=== PATIENT | male | born 1975 | race Caucasian/White ===

== ENCOUNTER 2017-06-24 18:28 | Emergency (ER) | payer MEDICAID ==
[2017-06-24] MEDS: LIDOCAINE/MYLANTA 40 ML BTL PO (21:03)
[2017-06-24] MEDS: FAMOTIDINE 20 MG TAB PO (21:03)
[2017-06-24 21:16] LABS: ADD MAN DIFF? NO
[2017-06-24 21:18] LABS: WHITE BLOOD COUNT 8.9 10^3/ul (4.8-10.8)
[2017-06-24 21:18] LABS: BASOPHILS % 0.3 % (0.0-2.0); EOSINOPHILS % 0.3 % (0.0-7.0); HEMATOCRIT 47.1 % (42.0-52.0); HEMOGLOBIN 16.6 g/dl (14.0-18.0); LYMPHOCYTES # 2.5 10^3/ul (0.8-2.9); LYMPHOCYTES % 28.4 % (15.0-51.0); MEAN CORPUSCULAR HEMOGLOBIN 30.5 pg (29.0-33.0); MEAN CORPUSCULAR HGB CONC 35.2 g/dl (32.0-37.0); MEAN CORPUSCULAR VOLUME 86.6 fl (82.0-101.0); MEAN PLATELET VOLUME 10.7 fl (7.4-10.4); MONOCYTE # 0.6 10^3/ul (0.3-0.9); NEUTROPHIL # 5.6 10^3/ul (1.6-7.5); NEUTROPHILS % 63.7 % (39.0-77.0); PLATELET COUNT 181 10^3/UL (140-415); RED BLOOD COUNT 5.44 10^6/ul (4.70-6.10); RED CELL DISTRIBUTION WIDTH 12.5 % (11.5-14.5)
[2017-06-24 21:43] LABS: ALANINE AMINOTRANSFERASE 104 IU/L (13-69); ALBUMIN 4.9 g/dl (3.3-4.9); ALBUMIN/GLOBULIN RATIO 1.53; ALKALINE PHOSPHATASE 85 IU/L (42-121); ANION GAP 14 (8-16); ASPARTATE AMINO TRANSFERASE 32 IU/L (15-46); BILIRUBIN,INDIRECT 0.2 mg/dl (0-1.1); BILIRUBIN,TOTAL 0.2 mg/dl (0.2-1.3); BLOOD UREA NITROGEN 13 mg/dl (7-20); CALCIUM 9.2 mg/dl (8.4-10.2); CARBON DIOXIDE 25 mmol/L (21-31); CHLORIDE 105 mmol/L (97-110); GLUCOSE 113 mg/dl (70-220); LIPASE 153 U/L (23-300); POTASSIUM 4.1 mmol/L (3.5-5.1); SODIUM 140 mmol/L (135-144); TOTAL PROTEIN 8.1 g/dl (6.1-8.1)
== END 2017-06-24 22:00 | disposition home or self-care (01) ==
LOC: FTE 18:28
DX: R10.13 Epigastric pain (principal)
CPT/HCPCS: 36415; 80053; 83690; 85025; 99283

== ENCOUNTER 2018-02-19 17:33 | Inpatient (IN) | payer MEDICAID ==
[2018-02-19] MEDS: PANTOPRAZOLE 40 MG INJ IV ×2 (19:10→21:18)
[2018-02-19] MEDS: ONDANSETRON 4 MG INJ IV (19:10)
[2018-02-19] MEDS: SOD CHLORIDE 0.9% 1,000 ML IV ×2 (19:10→23:01)
[2018-02-19 19:22] LABS: ADD MAN DIFF? NO
[2018-02-19 19:25] LABS: BASOPHIL # 0.1 10^3/ul (0.0-0.1); BASOPHILS % 0.3 % (0.0-2.0); HEMATOCRIT 39.2 % (42.0-52.0); HEMOGLOBIN 13.5 g/dl (14.0-18.0); LYMPHOCYTES # 1.2 10^3/ul (0.8-2.9); LYMPHOCYTES % 7.6 % (15.0-51.0); MEAN CORPUSCULAR HEMOGLOBIN 30.5 pg (29.0-33.0); MEAN CORPUSCULAR HGB CONC 34.4 g/dl (32.0-37.0); MEAN CORPUSCULAR VOLUME 88.5 fl (82.0-101.0); MEAN PLATELET VOLUME 11.1 fl (7.4-10.4); MONOCYTE # 0.5 10^3/ul (0.3-0.9); MONOCYTES % 3.1 % (0.0-11.0); NEUTROPHIL # 13.5 10^3/ul (1.6-7.5); PLATELET COUNT 229 10^3/UL (140-415); RED BLOOD COUNT 4.43 10^6/ul (4.70-6.10); RED CELL DISTRIBUTION WIDTH 12.4 % (11.5-14.5)
[2018-02-19 19:25] LABS: WHITE BLOOD COUNT 15.4 10^3/ul (4.8-10.8)
[2018-02-19 19:42] LABS: ALANINE AMINOTRANSFERASE 63 IU/L (13-69); ALBUMIN 4.1 g/dl (3.3-4.9); ALKALINE PHOSPHATASE 65 IU/L (42-121); ANION GAP 16 (8-16); ASPARTATE AMINO TRANSFERASE 23 IU/L (15-46); BILIRUBIN,INDIRECT 0.5 mg/dl (0-1.1); BILIRUBIN,TOTAL 0.5 mg/dl (0.2-1.3); BLOOD UREA NITROGEN 38 mg/dl (7-20); CALCIUM 9.3 mg/dl (8.4-10.2); CARBON DIOXIDE 26 mmol/L (21-31); CHLORIDE 104 mmol/L (97-110); CREATININE 0.76 mg/dl (0.61-1.24); GLUCOSE 168 mg/dl (70-220); POTASSIUM 4.8 mmol/L (3.5-5.1); SODIUM 141 mmol/L (135-144); TOTAL PROTEIN 7.5 g/dl (6.1-8.1)
[2018-02-19 19:45] LABS: INR 0.95; PROTIME 12.8 Sec (11.9-14.9)
[2018-02-19 19:46] LABS: PARTIAL THROMBOPLASTIN TIME 26.7 Sec (23.0-35.0)
[2018-02-19 19:53] LABS: TROPONIN-I < 0.012 ng/ml (0.000-0.120)
[2018-02-19] MEDS ORDERED: PANTOPRAZOLE IV 80 MG in SOD CHLORIDE 0.9% 100 ML IVPB (21:10)
[2018-02-19] MEDS: FAMOTIDINE 20 MG INJ INJ (21:23)
[2018-02-19] MEDS: PANTOPRAZOLE IV 80 MG in SOD CHLORIDE 0.9% 100 ML IV (21:29)
[2018-02-19] MEDS ORDERED: ACETAMINOPHEN 325 MG TAB PO (21:30)
[2018-02-19] MEDS ORDERED: ONDANSETRON 4 MG INJ IV ×2 (21:30→22:00)
[2018-02-19] MEDS ORDERED: BISACODYL (EC) 5 MG TAB PO (22:00)
[2018-02-19] MEDS ORDERED: DOCUSATE SODIUM 100 MG CAP PO (22:00)
[2018-02-19] MEDS ORDERED: NACL 0.9% 3 ML SYG IV (22:00)
[2018-02-19] MEDS: SUCRALFATE 1 GM TAB PO (23:15)
[2018-02-20 01:21] LABS: ADD MAN DIFF? NO
[2018-02-20 01:27] LABS: BASOPHILS % 0.2 % (0.0-2.0); HEMATOCRIT 29.2 % (42.0-52.0); LYMPHOCYTES # 1.5 10^3/ul (0.8-2.9); LYMPHOCYTES % 11.8 % (15.0-51.0); MEAN CORPUSCULAR HEMOGLOBIN 30.7 pg (29.0-33.0); MEAN CORPUSCULAR HGB CONC 34.2 g/dl (32.0-37.0); MEAN CORPUSCULAR VOLUME 89.6 fl (82.0-101.0); MEAN PLATELET VOLUME 11.6 fl (7.4-10.4); MONOCYTE # 0.8 10^3/ul (0.3-0.9); MONOCYTES % 6.5 % (0.0-11.0); NEUTROPHIL # 10.4 10^3/ul (1.6-7.5); NEUTROPHILS % 80.5 % (39.0-77.0); PLATELET COUNT 171 10^3/UL (140-415); RED BLOOD COUNT 3.26 10^6/ul (4.70-6.10); RED CELL DISTRIBUTION WIDTH 12.8 % (11.5-14.5)
[2018-02-20 07:01] LABS: WHITE BLOOD COUNT 10.5 10^3/ul (4.8-10.8)
[2018-02-20 07:01] LABS: ADD MAN DIFF? NO; BASOPHILS % 0.3 % (0.0-2.0); EOSINOPHILS % 0.1 % (0.0-7.0); HEMATOCRIT 27.2 % (42.0-52.0); HEMOGLOBIN 9.5 g/dl (14.0-18.0); LYMPHOCYTES % 18.6 % (15.0-51.0); MEAN CORPUSCULAR HEMOGLOBIN 30.7 pg (29.0-33.0); MEAN CORPUSCULAR HGB CONC 34.9 g/dl (32.0-37.0); MEAN PLATELET VOLUME 11.2 fl (7.4-10.4); MONOCYTE # 0.8 10^3/ul (0.3-0.9); MONOCYTES % 7.3 % (0.0-11.0); NEUTROPHIL # 7.7 10^3/ul (1.6-7.5); NEUTROPHILS % 72.9 % (39.0-77.0); PLATELET COUNT 166 10^3/UL (140-415); RED BLOOD COUNT 3.09 10^6/ul (4.70-6.10); RED CELL DISTRIBUTION WIDTH 12.8 % (11.5-14.5)
[2018-02-20 07:22] LABS: ALANINE AMINOTRANSFERASE 51 IU/L (13-69); ALBUMIN/GLOBULIN RATIO 1.25; ALKALINE PHOSPHATASE 47 IU/L (42-121); ANION GAP 11 (8-16); ASPARTATE AMINO TRANSFERASE 19 IU/L (15-46); BILIRUBIN,INDIRECT 0.5 mg/dl (0-1.1); BILIRUBIN,TOTAL 0.5 mg/dl (0.2-1.3); BLOOD UREA NITROGEN 29 mg/dl (7-20); CALCIUM 8.2 mg/dl (8.4-10.2); CARBON DIOXIDE 25 mmol/L (21-31); CHLORIDE 107 mmol/L (97-110); CHOL/HDL RATIO 5.2 RATIO; CHOLESTEROL 141 mg/dl (100-200); CREATININE 0.77 mg/dl (0.61-1.24); GLUCOSE 112 mg/dl (70-220); HDL CHOLESTEROL 27 mg/dl (27-67); LDL CHOLESTEROL,CALCULATED 54 mg/dl; MAGNESIUM 2.1 mg/dl (1.7-2.5); SODIUM 139 mmol/L (135-144); TOTAL PROTEIN 5.4 g/dl (6.1-8.1); TRIGLYCERIDES 299 mg/dl (0-149)
[2018-02-20 07:49] LABS: THYROID STIMULATING HORMONE 0.938 MIU/L (0.465-4.680)
[2018-02-20 07:55] LABS: HEMOGLOBIN A1C 5.6 % (0-5.9)
[2018-02-20] MEDS: SUCRALFATE 1 GM TAB PO ×4 (09:27→20:44)
[2018-02-20] MEDS: SOD CHLORIDE 0.9% 1,000 ML IV ×3 (10:10→20:45)
[2018-02-20 12:29] LABS: ADD MAN DIFF? NO
[2018-02-20 12:31] LABS: BASOPHILS % 0.2 % (0.0-2.0); EOSINOPHILS % 0.2 % (0.0-7.0); HEMATOCRIT 27.2 % (42.0-52.0); HEMOGLOBIN 9.3 g/dl (14.0-18.0); MEAN CORPUSCULAR HEMOGLOBIN 30.7 pg (29.0-33.0); MEAN CORPUSCULAR HGB CONC 34.2 g/dl (32.0-37.0); MEAN CORPUSCULAR VOLUME 89.8 fl (82.0-101.0); MEAN PLATELET VOLUME 11.1 fl (7.4-10.4); MONOCYTE # 0.6 10^3/ul (0.3-0.9); MONOCYTES % 6.3 % (0.0-11.0); NEUTROPHIL # 6.1 10^3/ul (1.6-7.5); NEUTROPHILS % 69.7 % (39.0-77.0); PLATELET COUNT 169 10^3/UL (140-415); RED BLOOD COUNT 3.03 10^6/ul (4.70-6.10); RED CELL DISTRIBUTION WIDTH 12.7 % (11.5-14.5)
[2018-02-20 12:31] LABS: WHITE BLOOD COUNT 8.7 10^3/ul (4.8-10.8)
[2018-02-20] MEDS: BISACODYL (EC) 5 MG TAB PO (14:19)
[2018-02-20 17:28] LABS: OCCULT BLOOD STOOL POSITIVE (NEGATIVE)
[2018-02-20] MEDS: MAGNESIUM CITRATE 300 ML BTL PO (17:49)
[2018-02-20] MEDS: POLYETHYLENE GLYCOL 3350 119 GM POWDER PO (18:31)
[2018-02-21 01:05] LABS: HEMATOCRIT 25.6 % (42.0-52.0); HEMOGLOBIN 8.8 g/dl (14.0-18.0)
[2018-02-21] MEDS: POLYETHYLENE GLYCOL 3350 119 GM POWDER PO (05:20)
[2018-02-21 06:04] LABS: ADD MAN DIFF? NO
[2018-02-21 06:15] LABS: BASOPHILS % 0.4 % (0.0-2.0); EOSINOPHILS % 0.4 % (0.0-7.0); HEMATOCRIT 25.5 % (42.0-52.0); HEMOGLOBIN 8.8 g/dl (14.0-18.0); LYMPHOCYTES # 1.7 10^3/ul (0.8-2.9); LYMPHOCYTES % 24.2 % (15.0-51.0); MEAN CORPUSCULAR HGB CONC 34.5 g/dl (32.0-37.0); MEAN CORPUSCULAR VOLUME 89.8 fl (82.0-101.0); MONOCYTE # 0.5 10^3/ul (0.3-0.9); MONOCYTES % 6.5 % (0.0-11.0); NEUTROPHIL # 4.6 10^3/ul (1.6-7.5); NEUTROPHILS % 67.1 % (39.0-77.0); PLATELET COUNT 150 10^3/UL (140-415); RED BLOOD COUNT 2.84 10^6/ul (4.70-6.10); RED CELL DISTRIBUTION WIDTH 12.8 % (11.5-14.5)
[2018-02-21 06:15] LABS: WHITE BLOOD COUNT 6.9 10^3/ul (4.8-10.8)
[2018-02-21] MEDS: BISACODYL (EC) 5 MG TAB PO (08:40)
[2018-02-21] MEDS: SUCRALFATE 1 GM TAB PO ×4 (08:40→20:21)
[2018-02-21] MEDS: SOD CHLORIDE 0.9% 1,000 ML IV ×2 (09:51→23:48)
[2018-02-21] MEDS: PROPOFOL 20 ML (14:38)
[2018-02-21] MEDS: FENTAnyl 50 MCG/ML VIAL (14:38)
[2018-02-22] MEDS: SUCRALFATE 1 GM TAB PO ×3 (08:09→17:32)
[2018-02-22] MEDS: SOD CHLORIDE 0.9% 1,000 ML IV (12:10)
== END 2018-02-22 18:04 | disposition home or self-care (01) | DRG 378 ==
LOC: FTE 17:33 → TEL 21:25
PROVIDERS: Family Medicine
PROC: 0DJ08ZZ Inspection of Upper Intestinal Tract, Via Natural or Artificial Opening Endoscopic (ICD-10-PCS; principal; 2018-02-21 14:03)
PROC: 0DJD8ZZ Inspection of Lower Intestinal Tract, Via Natural or Artificial Opening Endoscopic (ICD-10-PCS; 2018-02-21 14:03)
DX: K92.0 Hematemesis (principal); D62 Acute posthemorrhagic anemia; K92.1 Melena; Z87.11 Personal history of peptic ulcer disease; D72.829 Elevated white blood cell count, unspecified; K64.8 Other hemorrhoids
CPT/HCPCS: 36415; 74176; 80053; 80061; 82270; 83036; 83735; 84443; 84484; 85014; 85018; 85025; 85610; 85730; 86850; 86900; 86901; 93005; 96374; 96375; 99285-25; G0378